=== PATIENT | female | born 1980 | race Caucasian/White ===

== ENCOUNTER 2019-07-31 12:18 | Emergency (ER) | payer BC, OTHER ==
[~2019-07-31] VITALS: Ht 165.1 cm; Wt 136.1 kg
[~2019-07-31 12:18] MED LIST: Ibuprofen PO; PREN1TAB54 PO
[2019-07-31 14:10] VITALS: BP 139/95
--- NOTE | 2019-07-31 14:16 | PHYS DOC ---
Adult General Chief Complaint Chief Complaint: SORE THROAT HPI HPI Patient is a 38 year old female who presents with ear pain bilaterally off and on for the last month. Patient states her last week is currently worse and she went to see her doctor who stated that her ears looked fine. Patient states 2 d ays later the pain was worse and she went to [facility] emergency room and they said that her ears look reddened gave her eardrops and hydrocodone. Patient states the pain is worse and the medications are not working. Patient states that she now has a very sore throat and she is hoarse. She rates her pain an 8 out of 10. States that she feels like she is getting stabbed in her ears. Review of Systems Review of Systems HENT: nasal congestion or sore throat, bilateral ear pain [] All other systems were reviewed and found to be within normal limits, except as documented in this note. Allergies Allergies Allergies Coded Allergies Type Severity Reaction Last Updated Verified No Known Drug Allergies 06/12/15 No Physical Exam Physical Exam Constitutional: Well developed, well nourished, no acute distress, non-toxic appearance. [] HENT: Normocephalic, atraumatic, bilateral external ears normal, oropharynx moist, no oral exudates, nose normal. Tympanic syrup pink in color. Throat is reddened with exudates to the right tonsil and 1+ swelling.[] Eyes: PERRLA, EOMI, conjunctiva normal, no discharge. [] Neck: Normal range of motion, no tenderness, supple, no stridor. [] Cardiovascular:Heart rate regular rhythm, no murmur [] Lungs & Thorax: Bilateral breath sounds clear to auscultation [] Skin: Warm, dry, no erythema, no rash. [] Neurologic: Alert and oriented X 3, normal motor function, normal sensory function, no focal deficits noted. [] Psychologic: Affect normal, judgement normal, mood normal. [] Current Patient Data Vital Signs Vital Signs Date Time Temp Pulse Resp B/P (MAP) Pulse Ox O2 Delivery O2 Flow Rate FiO2 07/31/19 14:10 98.6 84 18 139/95 (110) 97 Room Air 98.6 EKG EKG [] Radiology/Procedures Radiology/Procedures [] Course & Med Decision Making Course & Med Decision Making Bilateral tympanic are pink in color. Tympanic membrane is intact. Throat is reddened with 1+ swelling and there looks to be exudates on the right tonsil. Afebrile and vital signs within normal limits. Lungs are clear to auscultation in all lobes. Skin pink warm and dry. Patient is eating and drinking appropriately. Patient denies abdominal pain, nausea, vomiting, diarrhea, shortness of breath, chest pain, cough, dizziness, headache. Alert and oriented. Speaks in full clear sentences. Dragon Disclaimer Dragon Disclaimer This electronic medical record was generated, in whole or in part, using a voice recognition dictation system. Departure Departure Impression: Primary Impression: Upper respiratory infection Additional Impressions: Ear pain Throat pain in adult Disposition: 01 HOME, SELF-CARE Condition: STABLE Referrals: NO PCP (PCP) Patient Instructions: Sore Throat, Upper Respiratory Infection, Adult Additional Instructions: Follow up with primary care provider. Take medications as prescribed. You can Ta ke 600mg of Ibuprofen every 6 hours. Scripts Methylprednisolone (MEDROL) 4 Mg Tab.ds.pk 1 PKG PO UD, #1 PKG Prov: JENNIFER SALINAS PARAMEDIC 07/31/19 Amoxicillin (AMOXICILLIN) 500 Mg Tablet 1 TAB PO BID, #20 TAB Prov: JENNIFER SALINAS PARAMEDIC 07/31/19 Oxycodone/Apap 5-325 (PERCOCET 5-325 MG TABLET ) 1 Each Tablet 1 TAB PO PRN Q6HRS PRN for PAIN, #10 TAB 0 Refills Prov: JENNIFER SALINAS APRN 07/31/19 Problem Qualifiers Primary Impression: Upper respiratory infection URI type: unspecified URI Qualified Codes: J06.9 - Acute upper respiratory infection, unspecified Additional Impressions: Ear pain Laterality: bilateral Qualified Codes: H92.03 - Otalgia, bilateral JENNIFER SALINAS PARAMEDIC Jul 31, 2019 14:16
[2019-07-31] MEDS ORDERED: METH4TAB2 PO (14:30)
[2019-07-31] MEDS ORDERED: AMOX500T PO (14:30)
[2019-07-31] MEDS ORDERED: OXYC1TAB15 PO ×2 (14:30→17:30)
== END 2019-07-31 14:43 | disposition home or self-care (01) ==
LOC: ER 12:18
DX: J06.9 Acute upper respiratory infection, unspecified (principal); H92.03 Otalgia, bilateral; R07.0 Pain in throat
CPT/HCPCS: 87070; 87880; 99283

== ENCOUNTER 2019-08-07 01:01 | Emergency (ER) | payer OTHER ==
[~2019-08-07] VITALS: Ht 172.7 cm; Wt 136.1 kg
[~2019-08-07 01:01] MED LIST changes: +AMOX500T PO; +METH4TAB2 PO; +OXYC1TAB15 PO
[2019-08-07 01:10] VITALS: BP 154/96
--- NOTE | 2019-08-07 01:20 | PHYS DOC ---
Past Medical History Past Medical History: Diabetes-Type II Alcohol Use: None Drug Use: None Adult General Chief Complaint Chief Complaint: SORE THROAT HPI HPI 30-year-old female presents for complaints of sore throat. Patient states she was diagnosed with ear infection present 1 week ago. She's been on amoxicillin prescription to finish the next couple days, hydrocodone, Z-Hero of which she has finished. She is well describes right ear pain. Her throat primary denies burning. She denies any fever, cough or shortness of breath, chest pain, nausea, vomiting. She states this started around 4 PM today with worsening burning sensation. All other ROS negative unless documented in HPI Review of Systems Review of Systems See Above Current Medications Current Medications Current Medications Medications (Trade) Dose Ordered Sig/Efren Start Time Stop Time Status Last Admin Dose Admin Lidocaine HCl (Viscous Lidocaine) 15 ml 1X ONCE 08/07/19 01:15 08/07/19 01:16 UNV Allergies Allergies Allergies Coded Allergies Type Severity Reaction Last Updated Verified No Known Drug Allergies 06/12/15 No Physical Exam Physical Exam See Above Constitutional: Well developed, well nourished, no acute distress, non-toxic appearance. [] HENT: Normocephalic, atraumatic, bilateral external ears normal, oropharynx moist mildly erythematous on the right, no oral exudates, nose normal. [] Eyes: PERRLA, EOMI, conjunctiva normal, no discharge. [] Neck: Normal range of motion, no tenderness, supple, no stridor. [] Cardiovascular: Heart rate regular rhythm, no murmur [] Lungs & Thorax: Bilateral breath sounds clear to auscultation [] Abdomen: Bowel sounds normal, soft, no tenderness, no masses, no pulsatile masses. [] Skin: Warm, dry, no erythema, no rash. [] Neurologic: Alert and oriented X 3, no focal deficits noted. [] Psychologic: Affect normal, judgement normal, mood normal. [] EKG EKG [] Radiology/Procedures Radiology/Procedures [] Course & Med Decision Making Course & Med Decision Making Pertinent Labs and Imaging studies reviewed. (See chart for details) []30-year-old female presents for complaints of sore throat. Patient states she was diagnosed with ear infection present 1 week ago. She's been on amoxicillin prescription to finish the next couple days, hydrocodone, Z-Hero of which she has finished. She is well describes right ear pain. Her throat primary denies burning. She denies any fever, cough or shortness of breath, chest pain, nausea, vomiting. She states this started around 4 PM today with worsening burning sensation. No evidence of exudate on exam. Discussed use of viscous lidocaine - swish/gargle and spit Negative strep in the last week Recommend follow up with PCP as outpatient on Thursday Anderson Disclaimer Anderson Disclaimer This electronic medical record was generated, in whole or in part, using a voice recognition dictation system. Departure Departure Impression: Primary Impression: Throat pain in adult Disposition: 01 HOME, SELF-CARE Condition: STABLE Referrals: NO PCP (PCP) Patient Instructions: Sore Throat, [id number] Additional Instructions: Recommend follow up with PCP 3 - 5 days Return to the ER with worsening symptoms, intractable pain, fever, altered mental status Tylenol/Motrin as needed for pain Use viscous lidocaine as discussed - gargle and spit SHAKILA FRENCH MD Aug 07, 2019 01:20
[2019-08-07] MEDS ORDERED: LIDOCAINE 2% VISCOUS 15 ML SOLUTION. SWSW ONE (01:30)
== END 2019-08-07 01:30 | disposition home or self-care (01) ==
LOC: ER 01:01
DX: J02.9 Acute pharyngitis, unspecified (principal); H92.01 Otalgia, right ear; R09.89 Other specified symptoms and signs involving the circulatory and respiratory systems; E11.9 Type 2 diabetes mellitus without complications
CPT/HCPCS: 99282

== ENCOUNTER 2021-01-25 04:13 | Emergency (ER) | payer OTHER ==
[~2021-01-25] VITALS: Ht 167.6 cm; Wt 163.6 kg
[2021-01-25] MEDS: ONDANSETRON PF 4 MG/2 ML VIAL. IVP ONE (05:31)
[2021-01-25] MEDS: MORPHINE SULFATE 4 MG/ML VIAL. IV ONE (05:32)
[2021-01-25 05:37] LABS: BASO % 1 % (0-3); EOS # 0.3 x10^3/uL (0.0-0.7); EOS % 5 % (0-3); HEMATOCRIT 41.7 % (36.0-47.0); HEMOGLOBIN 13.7 g/dL (12.0-15.5); LYMPH # 2.1 x10^3/uL (1.0-4.8); LYMPH % 33 % (24-48); MEAN CORPUSCULAR HEMOGLOBIN 27 pg (25-35); MEAN CORPUSCULAR HGB CONC 33 g/dL (31-37); MEAN CORPUSCULAR VOLUME 82 fL (79-100); MONO # 0.6 x10^3/uL (0.0-1.1); MONO % 9 % (0-9); NEUT # 3.6 x10^3/uL (1.8-7.7); NEUT % 54 % (31-73); PLATELET COUNT 236 x10^3/uL (140-400); RED BLOOD COUNT 5.06 x10^6/uL (3.50-5.40); RED CELL DISTRIBUTION WIDTH 14.9 % (11.5-14.5); WHITE BLOOD COUNT 6.6 x10^3/uL (4.0-11.0)
--- NOTE | 2021-01-25 05:37 | PHYS DOC ---
Past Medical History Past Medical History: Diabetes-Type II, High Cholesterol, Other Additional Past Medical Histor: ENLARGED UTERUS (FRANCESCOALCIRA I ) Past Surgical History: Cholecystectomy, (FRANCESCOALCIRA Cirilo KEY) Smoking Status: Never Smoker Alcohol Use: None Drug Use: None (FRANCESCOALCIRA I ) General Adult EDM: Chief Complaint: ABDOMINAL PAIN HPI: HPI: Patient is a 40 year old female who presents with a chief complaint of flank pain and abdominal pain. Patient states she has had pain for 2 months. Current pain is located left flank and lower abdomen. Patient states she has associated nausea but has not vomited. Over the last several weeks patient has been worked up by her primary care physician and QUALITY IMPROVEMENT COORDINATOR. Patient is scheduled for CT abd/pel this am but due to increased and intractable pain patient presents to ER for evaluation. (FRANCESCOALCIRA Cirilo KEY) Review of Systems: Review of Systems: Constitutional: Denies fever or chills. [] Eyes: Denies change in visual acuity. [] HENT: Denies nasal congestion or sore throat. [] Respiratory: Denies cough or shortness of breath. [] Cardiovascular: Denies chest pain or edema. [] GI: Positive abdominal pain, Positive nausea, no vomiting, bloody stools or diarrhea. [] : Denies dysuria. [] Musculoskeletal: Denies back pain or joint pain. [] Integument: Denies rash. [] Neurologic: Denies headache, focal weakness or sensory changes. [] Endocrine: Denies polyuria or polydipsia. [] Lymphatic: Denies swollen glands. [] Psychiatric: Denies depression or anxiety. [] (FRANCESCOALCIRA Kerr DO) Heart Score: Risk Factors: Risk Factors: DM, Current or recent (<one month) smoker, HTN, HLP, family history of CAD, obesity. Risk Scores: Score 0 - 3: 2.5% MACE over next 6 weeks - Discharge Home Score 4 - 6: 20.3% MACE over next 6 weeks - Admit for Clinical Observation Score 7 - 10: 72.7% MACE over next 6 weeks - Early Invasive Strategies (ALCIRA MAYA DO) C/O Chest Pain: No (ROBBY HUNTER DO) Current Medications: Current Medications Medications (Trade) Dose Ordered Sig/Efren Start Time Stop Time Status Last Admin Dose Admin Morphine Sulfate (Morphine Sulfate) 4 mg 1X ONCE 01/25/21 05:30 01/25/21 05:31 UNV 01/25/21 05:32 4 MG Ondansetron HCl (Zofran) 4 mg 1X ONCE 01/25/21 05:30 01/25/21 05:31 UNV 01/25/21 05:31 4 MG (ALCIRA MAYA DO) Allergies: Allergies: Allergies Coded Allergies Type Severity Reaction Last Updated Verified No Known Drug Allergies 06/12/15 No (ALCIRA MAYA DO) Physical Exam: PE: General: alert, no acute distress. Skin: warm, dry and intact. Head:: Normocephalic, atraumatic. Neck: Trachea midline. Eyes: EOMI, Normal conjunctiva, No drainage CARDIOVASCULAR: Regular rate and rhythm RESPIRATORY: No respiratory distress Back: Full range of motion. MUSCULOSKELETAL: Full range of motion of bilateral upper and lower extremities. GASTROINTESTINAL: Abdomen soft without rebound or guarding. NEUROLOGICAL: Alert and noted to person, place and time. No neurological deficits observed Psychiatric: Cooperative. Normal judgment (ALCIRA MAYA DO) Current Patient Data: Vital Signs: Vital Signs Date Time Temp Pulse Resp B/P (MAP) Pulse Ox O2 Delivery O2 Flow Rate FiO2 01/25/21 05:32 99 01/25/21 04:24 98.1 94 25 202/105 (137) Room Air 98.1 (ALCIRA MAYA DO) EKG: EKG: [] (ALCIRA MAYA DO) Radiology/Procedures: Radiology/Procedures: [] (ALCIRA MAYA DO) Impression: [facility] [address] [place] [address] IMAGING REPORT Signed PATIENT: JAVI ROSALES ACCOUNT: [id number] : 1980 LOCATION: ER AGE: 40 SEX: F EXAM STATUS: REG ER ORD. PHYSICIAN: ALCIRA MAYA DO REASON: abd pain PROCEDURE: CT ABD PELV W/ IV CONTRST ONLY CT ABDOMEN+PELVIS W History: abd pain Comparison: None. Technique: After administration of intravenous contrast, helical CT of the abdomen and pelvis was performed from the lung bases through the ischial tuberosities. Coronal and sagittal reconstructions were obtained. 75 mL of Omnipaque 300 were used. One or more of the following dose reduction techniques were utilized: Automated exposure control (AEC), Adjustment of mA and/or kV according to patient size, Use of iterative reconstruction technique such as ASiR, CT scan done according to ALARA and image gently/image wisely Abdomen Findings: The visualized lung bases are clear. The liver, pancreas, spleen, and bilateral adrenal glands are normal. Cholecystectomy Symmetric renal enhancement. There is no focal renal mass. There is no hydronephrosis. The visualized loops of small bowel are normal. The visualized loops of large bowel are normal. There is no evidence of bowel obstruction. Appendix is normal. There is no free fluid. There is no mesenteric or retroperitoneal adenopathy. The abdominal aorta is normal in caliber. Pelvis Findings: Urinary bladder is decompressed. Uterus is present. No pelvic free fluid. There is no pelvic or inguinal adenopathy. There is no acute bony abnormality. IMPRESSION: No acute findings. Electronically signed by: Juan Urrutia MD (01/25/2021 7:01 AM) [id number] DICTATED and SIGNED BY: JUAN URRUTIA MD DATE: 01/25/21 [id number] (ROBBY HUNTER DO) Course & Med Decision Making: Course & Med Decision Making Pertinent Labs and Imaging studies reviewed. (See chart for details) []The patient was seen and interviewed as well as examined at the bedside. The chart was reviewed. The case was discussed. Agree with the plan of care. (ALCIRA MAYA DO) Dragon Disclaimer: Dragkaley Disclaimer: This electronic medical record was generated, in whole or in part, using a voice recognition dictation system. (ALCIRA MAYA DO) Departure Departure Impression: Primary Impression: Abdominal pain Additional Impression: UTI (urinary tract infection) Disposition: HOME / SELF CARE / HOMELESS Condition: STABLE Referrals: TRACIE LAM (PCP) Patient Instructions: Abdominal Pain, Urinary Tract Infection Additional Instructions: The patient is awake, alert and in no acute distress. The patient reports she has had problems with abdominal pain for quite some time now and is following up with her QUALITY IMPROVEMENT COORDINATOR with respect to this problem. The patient does have findings consistent with mild urinary tract infection I advised that she take the antibiotics as prescribed and maintain follow-up with her QUALITY IMPROVEMENT COORDINATOR to discuss further measures with respect her pain. The patient understands and states she will do so. Should she develop any new fevers, intractable vomiting or new symptoms, she has been advised to return. The patient understands this is well. She is nontoxic-appearing and denies abdominal pain at this time. She is stable for discharge Scripts Nitrofurantoin Monohyd/M-Cryst (MACROBID 100 MG CAPSULE) 100 Mg Capsule 1 CAP PO BID for 7 Days, #14 CAP 0 Refills Prov: ROBBY HUNTER DO 01/25/21 Hydrocodone Bit/Acetaminophen (HYDROCODONE-APAP 5-325 ) 1 Tab Tablet 1 TAB PO PRN Q6HRS PRN for PAIN for 3 Days, #12 TAB 0 Refills Prov: ROBBY HUNTER DO 01/25/21 Ondansetron Hcl (ZOFRAN) 4 Mg Tablet 1 TAB PO PRN Q6-8HRS for nausea, #12 TAB Prov: ROBBY HUNTER DO 01/25/21 ALCIRA MAYA I DO Jan 25, 2021 05:37 ROBBY HUNTER DO Jan 25, 2021 07:10
[2021-01-25 05:48] LABS: CALCIUM 8.6 mg/dL (8.5-10.1); CREATININE 0.8 mg/dL (0.6-1.0); GFR 79.4; POTASSIUM 3.8 mmol/L (3.5-5.1)
[2021-01-25 05:53] LABS: ALBUMIN 3.6 g/dL (3.4-5.0); ALBUMIN/GLOBULIN RATIO 0.9 (1.0-1.7); TOTAL BILIRUBIN 0.3 mg/dL (0.2-1.0); TOTAL PROTEIN 7.8 g/dL (6.4-8.2)
[2021-01-25] MEDS ORDERED: CONTRAST GIVEN. MC PRN (06:00)
[2021-01-25 06:34] LABS: BILIRUBIN,URINE NEGATIVE (NEG); CLARITY,URINE CLEAR; COLOR,URINE YELLOW; NITRITE,URINE NEGATIVE (NEG); PROTEIN,URINE NEGATIVE (NEG-TRACE); UROBILINOGEN,URINE 0.2 mg/dL (0.2 mg/dL)
[2021-01-25] MEDS: IOHEXOL 300 MG/ML 100ML VIAL. IV ONE (06:44)
[2021-01-25 06:54] VITALS: BP 115/68
--- NOTE | 2021-01-25 07:03 | RAD ---
CT ABDOMEN+PELVIS W History: abd pain Comparison: None. Technique: After administration of intravenous contrast, helical CT of the abdomen and pelvis was per formed from the lung bases through the ischial tuberosities. Coronal and sagittal reconstructions wer e obtained. 75 mL of Omnipaque 300 were used. One or more of the following dose reduction techniques were utilized: Automated exposure control (AEC), Adjustment of mA and/or kV according to patient size , Use of iterative reconstruction technique such as ASiR, CT scan done according to ALARA and image g ently/image wisely Abdomen Findings: The visualized lung bases are clear. The liver, pancreas, spleen, and bilateral adrenal glands are normal. Cholecystectomy Symmetric renal enhancement. There is no focal renal mass. There is no hydronephrosis. The visualized loops of small bowel are normal. The visualized loops of large bowel are normal. There is no evidence of bowel obstruction. Appendix is normal. There is no free fluid. There is no mesenteric or retroperitoneal adenopathy. The abdominal aorta is normal in caliber. Pelvis Findings: Urinary bladder is decompressed. Uterus is present. No pelvic free fluid. There is no pelvic or ingui nal adenopathy. There is no acute bony abnormality. IMPRESSION: No acute findings. Electronically signed by: Lee Urrutia MD (01/25/2021 7:01 AM) [id number]
[2021-01-25 07:13] LABS: RBC,URINE 0 /HPF (0-2)
[2021-01-25] MEDS ORDERED: ONDA4TAB7 PO (07:13)
[2021-01-25] MEDS ORDERED: HYDR-2761 PO (07:13)
[2021-01-25 07:14] LABS: BACTERIA,URINE MODERATE /HPF (0-FEW)
[2021-01-25] MEDS ORDERED: NITR100C62 PO (07:17)
== END 2021-01-25 07:29 | disposition home or self-care (01) ==
LOC: ER 04:13
DX: N39.0 Urinary tract infection, site not specified (principal); R10.32 Left lower quadrant pain; R11.0 Nausea; E11.9 Type 2 diabetes mellitus without complications; E78.00 Pure hypercholesterolemia, unspecified; Z90.49 Acquired absence of other specified parts of digestive tract; Z98.890 Other specified postprocedural states
CPT/HCPCS: 36415; 74177; 80053; 81001; 81025; 83690; 85025; 87086; 96374; 96375; 99285; J2270; J2405; Q9967